=== PATIENT | female | born 1965 | race American Indian/Alaskan Native ===

== ENCOUNTER 2021-03-23 16:45 | Emergency (ER) | payer SELFPAY ==
--- NOTE | 2021-03-23 18:08 | Emergency Department Report ---
ED Psych HPI - General Chief Complaint: Psych Stated Complaint: DEPRESSION Time Seen by Provider: 03/23/21 18:00 Source: patient Mode of arrival: Ambulatory Limitations: No Limitations - History of Present Illness Initial Comments: CC: "I just can't make it. I need someone to talk to." HPI: This is a 55 yo female with hx of HTN, arthritis, polysubstance abuse who presents with depressed mood. She has been taking her friend's medications for depression for the past 2-3 weeks. She has suicidal ideation without plan. She denies HI/AV hallucinations. "I have a lot going on right now." She has hx of tobacco, alcohol and cocaine use. No known diagnosis of depression. She was evaluated for depressed mood at [facility] 2 to 3 years ago. MD Complaint: suicidal ideation, feels depressed -: Gradual, week(s) (3 weeks severe depression) Associated Psychiatric Symptoms: depression, suicidal ideation Quality: constant Improves With: none Worsens With: none Context: recent alcohol abuse, recent drug abuse, not taking psychiatric, significant life stressor Associated Symptoms: denies other symptoms Treatments Prior to Arrival: none, other If Self Harm: admits thoughts of - Related Data Home Medications Medication Instructions Recorded Confirmed Last Taken No Known Home Medications [No 03/23/21 03/23/21 Unknown Reported Home Medications] Allergies Allergy/AdvReac Type Severity Reaction Status Date / Time No Known Allergies Allergy Verified 03/23/21 17:17 ED Review of Systems ROS: Stated complaint: DEPRESSION Other details as noted in HPI Comment: All other systems reviewed and negative Constitutional: denies: fever, malaise Respiratory: denies: cough, shortness of breath Cardiovascular: denies: chest pain Gastrointestinal: denies: abdominal pain, nausea, vomiting Psychiatric: depression, suicidal thoughts ED Past Medical Hx - Past Medical History Previous Medical History?: Yes Hx Hypertension: Yes Hx Arthritis: Yes - Surgical History Past Surgical History?: Yes Additional Surgical History: L ankle repair plate/pins - Social History Smoking Status: Current Every Day Smoker Substance Use Type: Alcohol, Cocaine - Medications Home Medications: Home Medications Medication Instructions Recorded Confirmed Last Taken Type No Known Home Medications [No 03/23/21 03/23/21 Unknown History Reported Home Medications] ED Physical Exam - General Limitations: No Limitations General appearance: alert, in no apparent distress, other (Tearful no acute distress cooperative) - Head Head exam: Present: atraumatic, normocephalic - Eye Eye exam: Present: normal appearance - ENT ENT exam: Present: mucous membranes moist - Neck Neck exam: Present: normal inspection - Respiratory Respiratory exam: Present: normal lung sounds bilaterally. Absent: respiratory distress - Cardiovascular Cardiovascular Exam: Present: regular rate, normal rhythm. Absent: systolic murmur, diastolic murmur, rubs, gallop - GI/Abdominal GI/Abdominal exam: Present: soft, normal bowel sounds. Absent: distended, tenderness, guarding, rebound - Extremities Exam Extremities exam: Present: normal inspection - Neurological Exam Neurological exam: Present: alert, oriented X3 - Psychiatric Psychiatric exam: Present: depressed, suicidal ideation - Skin Skin exam: Present: warm, dry, intact, normal color. Absent: rash ED Course Vital Signs 03/23/21 03/23/21 03/24/21 17:17 17:58 01:13 Temperature 98.6 F 98.4 F Pulse Rate 84 76 Respiratory 18 18 Rate Blood Pressure 162/100 160/91 [Left] O2 Sat by Pulse 100 100 100 Oximetry 03/24/21 10:24 Temperature 98.7 F Pulse Rate 74 Respiratory 16 Rate Blood Pressure 136/86 [Left] O2 Sat by Pulse 97 Oximetry ED Medical Decision Making - Lab Data Result diagrams: 03/23/21 17:36 03/23/21 17:36 Laboratory Results - last 24 hr 03/23/21 03/23/21 03/23/21 17:36 17:36 17:36 WBC RBC Hgb Hct MCV MCH MCHC RDW Plt Count Lymph % (Auto) [place] % (Auto) Eos % (Auto) Baso % (Auto) Lymph # (Auto) Wetzel # (Auto) Eos # (Auto) Baso # (Auto) Seg Neutrophils % Seg Neutrophils # Sodium 141 Potassium 3.6 Chloride 103.0 Carbon Dioxide 25 Anion Gap 17 BUN 7 Creatinine 0.7 Estimated GFR > 60 BUN/Creatinine Ratio 10 Glucose 83 Calcium 9.3 Urine Color Urine Turbidity Urine pH Ur Specific [place] Urine Protein Urine Glucose (UA) Urine Ketones Urine Blood Urine Nitrite Urine Bilirubin Urine Urobilinogen Ur Leukocyte Esterase Urine WBC (Auto) Urine RBC (Auto) U Epithel Cells (Auto) Urine Bacteria (Auto) Urine Mucus Salicylates < 0.3 L Urine Opiates Screen Urine Methadone Screen Acetaminophen 5.0 L Ur Barbiturates Screen Ur Phencyclidine Scrn Ur Amphetamines Screen U Benzodiazepines Scrn Urine Cocaine Screen U Marijuana (THC) Screen Drugs of Abuse Note Plasma/Serum Alcohol 03/23/21 03/23/21 03/23/21 17:36 17:36 17:58 WBC 5.4 RBC 4.54 Hgb 13.3 Hct 41.2 MCV 91 MCH 29 MCHC 32 RDW 13.9 Plt Count 254 Lymph % (Auto) 40.4 H Wetzel % (Auto) 5.7 Eos % (Auto) 0.7 Baso % (Auto) 0.3 Lymph # (Auto) 2.2 Wetzel # (Auto) 0.3 Eos # (Auto) 0.0 Baso # (Auto) 0.0 Seg Neutrophils % 52.9 Seg Neutrophils # 2.9 Sodium Potassium Chloride Carbon Dioxide Anion Gap BUN Creatinine Estimated GFR BUN/Creatinine Ratio Glucose Calcium Urine Color Yellow Urine Turbidity Clear Urine pH 5.0 Ur Specific [place] 1.010 Urine Protein <15 mg/dl Urine Glucose (UA) Neg Urine Ketones Neg Urine Blood Sm Urine Nitrite Neg Urine Bilirubin Neg Urine Urobilinogen < 2.0 Ur Leukocyte Esterase Neg Urine WBC (Auto) 1.0 Urine RBC (Auto) 1.0 U Epithel Cells (Auto) < 1.0 Urine Bacteria (Auto) 1+ Urine Mucus Few Salicylates Urine Opiates Screen Urine Methadone Screen Acetaminophen Ur Barbiturates Screen Ur Phencyclidine Scrn Ur Amphetamines Screen U Benzodiazepines Scrn Urine Cocaine Screen U Marijuana (THC) Screen Drugs of Abuse Note Plasma/Serum Alcohol 0.05 03/23/21 17:58 WBC RBC Hgb Hct MCV MCH MCHC RDW Plt Count Lymph % (Auto) [place] % (Auto) Eos % (Auto) Baso % (Auto) Lymph # (Auto) Wetzel # (Auto) Eos # (Auto) Baso # (Auto) Seg Neutrophils % Seg Neutrophils # Sodium Potassium Chloride Carbon Dioxide Anion Gap BUN Creatinine Estimated GFR BUN/Creatinine Ratio Glucose Calcium Urine Color Urine Turbidity Urine pH Ur Specific [place] Urine Protein Urine Glucose (UA) Urine Ketones Urine Blood Urine Nitrite Urine Bilirubin Urine Urobilinogen Ur Leukocyte Esterase Urine WBC (Auto) Urine RBC (Auto) U Epithel Cells (Auto) Urine Bacteria (Auto) Urine Mucus Salicylates Urine Opiates Screen Presumptive negative Urine Methadone Screen Presumptive negative Acetaminophen Ur Barbiturates Screen Presumptive negative Ur Phencyclidine Scrn Presumptive negative Ur Amphetamines Screen Presumptive negative U Benzodiazepines Scrn Presumptive negative Urine Cocaine Screen Presumptive positive U Marijuana (THC) Screen Presumptive negative Drugs of Abuse Note Disclamer Plasma/Serum Alcohol - Medical Decision Making Acute depression and suicidal ideation with plan to overdose on Ibuprofen. She is medically clear for psychiatric care. labs reviewed, UDS cocaine+ 1013 involuntary hold protocol in place. Critical care attestation.: If time is entered above; I have spent that time in minutes in the direct care of this critically ill patient, excluding procedure time. ED Disposition Clinical Impression: Acute depression, Suicidal ideation Disposition: [address] [place] [address] HOSPITAL Is pt being admited?: No Does the pt Need Aspirin: No Condition: Stable
[2021-03-23 18:23] LABS: Bacteria,Urine 1+ /HPF (Negative); Bilirubin,Urine NEG (Negative); Blood,Urine SM (Negative); Color,Urine Yellow (Yellow); Mucus,Urine FEW /HPF; Protein,Urine <15 mg/dL mg/dL (Negative); Urobilinogen,Urine < 2.0 mg/dL (<2.0)
[2021-03-23 18:29] LABS: Amphetamine Screen,Urine PRESUMPTIVE NEGATIVE; Benzodiazepines Screen,Urine PRESUMPTIVE NEGATIVE; Cannabinoid Screen,Urine PRESUMPTIVE NEGATIVE; Cocaine Screen,Urine PRESUMPTIVE POSITIVE; Methadone Screen,Urine PRESUMPTIVE NEGATIVE; Opiate Screen,Urine PRESUMPTIVE NEGATIVE
[2021-03-23 18:30] LABS: Blood Urea Nitrogen 7 mg/dL (7-17); Calcium 9.3 mg/dL (8.4-10.2); Hemolysis Index 10
[2021-03-23 18:35] LABS: Basophils % (Auto) 0.3 % (0.0-1.8); Eosinophils % (Auto) 0.7 % (0.0-4.3); Hematocrit 41.2 % (30.3-42.9); Hemoglobin 13.3 gm/dl (10.1-14.3); Lymphocytes # (Auto) 2.2 K/mm3 (1.2-5.4); Lymphocytes % (Auto) 40.4 % (13.4-35.0); Mean Corpuscular HGB Conc 32 % (30-34); Mean Corpuscular Volume 91 fl (79-97); Monocytes # (Auto) 0.3 K/mm3 (0.0-0.8); Monocytes % (Auto) 5.7 % (0.0-7.3); Platelet Count 254 K/mm3 (140-440); Red Blood Count 4.54 M/mm3 (3.65-5.03); Red Cell Distribution Width 13.9 % (13.2-15.2)
[2021-03-23 18:43] LABS: BUN/Creatinine Ratio 10
[2021-03-24 10:25] VITALS: BP 136/86
--- NOTE | 2021-03-24 10:55 | Consultation ---
History of Present Illness - Reason for Consult Consult date: 03/24/21 Reason for consult: suicidal ideation - History of Present Psychiatric Illness ED Note: This is a 55 yo female with hx of HTN, arthritis, polysubstance abuse who presents with depressed mood. She has been taking her friend's medications for depression for the past 2-3 weeks. She has suicidal ideation without plan. She denies HI/AV hallucinations. "I have a lot going on right now." She has hx of tobacco, alcohol and cocaine use. Patito Sawyer is a 55 year old female with no psychiatric history who present to the Ed with suicidal ideation. The patient patient states she had a breakdown stating " things are not going right and I don't feel like I can make it." She endorses suicidal ideation without a plan. The patient is paranoid " People are talking about me and I can't get that off my head." She denies hallucinations. PAST PSYCHIATRIC HISTORY: Diagnoses: Denies Suicide attempts or Self-harm behavior:Denies Prior psychiatric hospitalizations:Denies Substance Abuse history:Cocaine, Alcohol Previous psychiatric medications tried: Denies Outpatient treatment: Denies PAST MEDICAL HISTORY: None reported or document Family Psychiatric History: None reported or documented SOCIAL HISTORY Marital Status: Single Living Arrangements: Homeless Employment Status: unemployed Access to guns/weapons: Denies Education:Associate History of Abuse: No Legal History: Unknown REVIEW OF SYSTEMS Constitutional: Negative for weight loss ENT: Negative for stridor Respiratory: Negative for cough or hemoptysis All other systems reviewed and are negative MENTAL STATUS EXAMINATION General Appearance and Behavior: Age appropriate, good hygiene, wearing appropriate clothes. cooperative Cooperation: cooperative Psychomotor Behavior: Psychomotor normal Mood:Depressed Affect and affective range: withdrawn Thought Process: Goal oriented Thought Content:Suicidal Speech: Normal Suicidal Ideation:Yes Homicidal Ideation: Denies Hallucinations: Denies Delusions: Paranoid Impulse Control: Limited Insight and Judgment: Limited Memory: limited Attention: Distractible Orientation: alert and oriented Assessment and Plan (1) Major depressive disorder (2) Treatment Plan Continue 1013 Sitter: per primary Medical: per primary Disposition:Recommend acute psychiatric inpatient treatment. Will follow. Thanks Case staffed with Dr. Duffy Medications and Allergies Medications and Allergies Allergies Allergy/AdvReac Type Severity Reaction Status Date / Time No Known Allergies Allergy Verified 03/23/21 17:17 Home Medications Medication Instructions Recorded Confirmed Last Taken Type No Known Home Medications [No 03/23/21 03/23/21 Unknown History Reported Home Medications] Mental Status Exam - Vital signs Last Vital Signs Temp 98.7 F 03/24/21 10:24 Pulse 74 03/24/21 10:24 Resp 16 03/24/21 10:24 BP 136/86 03/24/21 10:24 Pulse Ox 97 03/24/21 10:24 Results Result Diagrams: 03/23/21 17:36 03/23/21 17:36 Abnormal lab results 03/23/21 03/23/21 03/23/21 Range/Units 17:36 17:36 17:36 Lymph % (Auto) 40.4 H (13.4-35.0) % Salicylates < 0.3 L (2.8-20.0) mg/dL Acetaminophen 5.0 L (10.0-30.0) ug/mL All other labs normal.
--- NOTE | 2021-03-24 11:59 | Event Note ---
Date: 03/24/21 Patient seen and evaluated by psychiatry this morning. Recommendation is to continue to 1013 and inpatient psychiatric placement. No new events reported by staff.
== END 2021-03-24 18:08 ==
LOC: ED 16:45
DX: F32.9 Major depressive disorder, single episode, unspecified (principal); R45.851 Suicidal ideations; I10 Essential (primary) hypertension; M19.90 Unspecified osteoarthritis, unspecified site; F17.200 Nicotine dependence, unspecified, uncomplicated; F14.90 Cocaine use, unspecified, uncomplicated; Z72.89 Other problems related to lifestyle; Z79.899 Other long term (current) drug therapy
CPT/HCPCS: 36415; 80048; 80307; 80320; 81001; 85025; 99285; G0480